=== PATIENT | male | born 1960 ===

== ENCOUNTER 2022-12-28 07:03 | Day surgery (SDC) | payer BC ==
[~2022-12-28 07:03] MED LIST: Lactated Ringers 1,000 ML IV SCH; Lidocaine 1%/Sod Bicarbonate in NS 8.4% 1 ML Syringe IDERM PRN; Sodium Chloride 0.9% 10 ML Syringe FLUSH PRN; Sodium Chloride 0.9% 10 ML Syringe FLUSH SCH
[2022-12-28] MEDS ORDERED: Bupivacaine 0.5%/EPINEPHrine 1:200,000 50 ML MDV ONE (07:14)
[2022-12-28] MEDS ORDERED: fentaNYL 100 MCG/2 ML SDV ONE ×2 (07:27→08:52)
[2022-12-28] MEDS ORDERED: Propofol 200 MG/20 ML SDV ONE (07:27)
[2022-12-28] MEDS ORDERED: Lidocaine 1% 4 ML ONE (07:27)
[2022-12-28] MEDS ORDERED: Rocuronium 50 MG/5 ML Vial ONE (07:27)
[2022-12-28] MEDS ORDERED: Sugammadex Sodium 200 MG/2 ML VIAL ONE (07:35)
[2022-12-28] MEDS ORDERED: ceFAZolin 2 GM Vial ONE (08:21)
[2022-12-28] MEDS ORDERED: ePHEDrine 50 MG/ML SDV ONE (08:24)
[2022-12-28] MEDS ORDERED: Ketorolac 30 MG/ML SDV ONE (08:28)
[2022-12-28] MEDS ORDERED: Dexamethasone 4 MG/ML 5 ML MDV ONE (08:28)
[2022-12-28] MEDS ORDERED: Ondansetron 4 MG/2 ML SDV ONE (08:28)
[2022-12-28] MEDS ORDERED: Lactated Ringers 1,000 ML IV ONE (08:30)
[2022-12-28] MEDS ORDERED: Ondansetron 4 MG/2 ML SDV IVPUSH PRN (08:42)
[2022-12-28] MEDS ORDERED: fentaNYL 100 MCG/2 ML SDV IVPUSH PRN (08:42)
[2022-12-28] MEDS ORDERED: HYDROmorphone 0.5 MG/0.5 ML Syringe IVPUSH PRN (08:42)
[2022-12-28] MEDS ORDERED: Acetaminophen/HYDROcodone 325-5 MG Tab PO SCH (10:02)
== END 2022-12-28 12:15 | disposition home or self-care (01) ==
LOC: JD.SDS 07:03
PROVIDERS: ATTEND Surgery
DX: K42.0 Umbilical hernia with obstruction, without gangrene (principal); R19.7 Diarrhea, unspecified; Z79.899 Other long term (current) drug therapy
CPT/HCPCS: 49594; A9270; J0690; J1100; J1885; J2405; J2704; J3010; J3490; J7120